=== PATIENT | male | born 1955 | race Caucasian/White ===

== ENCOUNTER → 2019-08-06 08:05 | Outpatient (CLI) | payer OTHER, SELFPAY ==
[2019-08-06 08:45] LABS: Add Manual Diff / Slide Review NO; Basophils Absolute Auto 0 /uL (0-100); Basophils Percent Auto 0.5 % (0-2); Eosinophils Absolute Auto 200 /uL (0-450); Eosinophils Percent Auto 5.8 % (2-4); Hematocrit 46.3 % (41-53); Hemoglobin 15.7 g/dL (13.5-17.5); Lymphocytes Absolute Auto 1400 /uL (1100-4500); Lymphocytes Percent Auto 40.1 % (25-40); Mean Corpuscular HGB Conc 33.9 % (30-36); Mean Corpuscular Hemoglobin 30.9 PG (26-34); Mean Corpuscular Volume 91.2 fL (80-100); Monocytes Absolute Auto 100 /uL (0-900); Monocytes Percent Auto 2.7 % (3-14); Neutrophils Absolute Auto 1700 /uL (1500-7000); Neutrophils Percent Auto 50.9 % (50-75); Platelet Count 142 X10^3/uL (150-400); Red Blood Cell Count 5.07 X10^6/uL (4.5-5.9); Red Cell Distribution Width 14.6 % (11.6-14.8); White Blood Cell Count 3.4 X10^3/uL (4.5-11.0)
[2019-08-06 09:02] LABS: Alanine Aminotransferase 22 IU/L (<50); Albumin 4.6 g/dL (3.5-5.0); Albumin Globulin Ratio 1.8 (1.0-2.8); Alkaline Phosphatase 59 U/L (38-126); Aspartate Aminotransferase 29 IU/L (17-59); BUN Creatinine Ratio 18.3 (6-22); Bilirubin Total 1.1 mg/dL (0.2-1.3); Blood Urea Nitrogen 15 mg/dL (9-20); Calcium 9.5 mg/dL (8.4-10.2); Carbon Dioxide 27 mmol/L (22-32); Chloride 102 mmol/L (98-107); Creatine Kinase 80 U/L (55-170); Estimated Glomerular Filt Rate > 60.0 mL/min (>60); Globulin 2.6 g/dL (1.7-4.1); Glucose 111 mg/dL (80-110); HEMOLYSIS < 15 (0-50); Sodium 139 mmol/L (137-145); Total Protein 7.2 g/dL (6.3-8.2); Uric Acid 4.9 mg/dL (3.5-8.5)
[2019-08-06 09:05] LABS: C-Reactive Protein Quant < 0.5 mg/dL (<1.0)
[2019-08-06 09:48] LABS: Erythrocyte Sedimentation Rate 1 MM/HR (0-15)
[2019-08-07 23:06] LABS: Aldolase 4.4 U/L (3.3-10.3)
== END ==
PROVIDERS: PCP Family Medicine; Referring Provider Internal Medicine Rheumatology; Visit Provider Internal Medicine Rheumatology
DX: M10.9 Gout, unspecified (principal)
CPT/HCPCS: 36415; 80053; 82085; 82550; 84550; 85025; 85651; 86140

== ENCOUNTER → 2019-12-11 11:52 | Outpatient (CLI) | payer OTHER, SELFPAY ==
--- NOTE | 2019-12-11 11:55 | DI.RAD.S_ITS ---
PROCEDURE: XR LUMBAR SPINE MIN 4V INDICATIONS: LBP TECHNIQUE: 4 total views of the lumbar spine were acquired, including bilateral oblique views. COMPARISON: [facility], MR, MR LUMBAR SPINE WITHOUT CONTRAST, 05/26/2017, 10:15. [facility], RF, LUMBAR TRANSFORAMINAL HERRERA, 03/16/2018, 8:21. [facility], RF, LUMBAR TRANSFORAMINAL HERRERA, 09/13/2018, 9:47. FINDINGS: Bones: Mild levoconvex scoliotic curvature is noted. 5 nonrib-bearing, lumbar type vertebral bodies are seen. No displaced fractures are seen. No suspicious lytic or blastic lesions are seen. The disc heights are well preserved. Lower lumbar spine facet arthropathy is seen. Soft tissues: Overlying bowel gas pattern is normal. No suspicious soft tissue calcifications. Atherosclerotic calcification is noted. Pelvic phleboliths are incidentally noted. Oblique images: No pars defects. IMPRESSION: No significant abnormality is seen for age. No pars defects are detected. Dictated by: Deon Jessica M.D. on 12/11/2019 at 11:40 Approved by: Deon Jessica M.D. on 12/11/2019 at 11:42
== END ==
PROVIDERS: PCP Family Medicine; Referring Provider Family Medicine; Visit Provider Physical Medicine & Rehabilitation
DX: M47.26 Other spondylosis with radiculopathy, lumbar region (principal); M54.5 Low back pain; M41.9 Scoliosis, unspecified
CPT/HCPCS: 72110

== ENCOUNTER → 2020-02-12 13:02 | Outpatient (CLI) | payer OTHER, SELFPAY ==
[2020-02-12 15:20] LABS: COVID19 -Nasal RAPID Negative (Negative)
== END ==
PROVIDERS: PCP Family Medicine; Visit Provider Physical Medicine & Rehabilitation
DX: Z11.59 Encounter for screening for other viral diseases (principal)
CPT/HCPCS: 87635; C9803

== ENCOUNTER 2020-02-14 13:42 | Outpatient (CLI) | payer OTHER, SELFPAY ==
[2020-02-14] VITALS (8 sets, daily range): BP systolic 141–182; BP diastolic 83–101; PULSE 54–61; RESP 7–22; TEMP 36.1–36.6; O2SAT 2–98
--- NOTE | 2020-02-14 13:45 | DI.RAD.S_ITS ---
PROCEDURE: PAIN L/S TRANSFORAMINAL INJECT INDICATIONS: SPONDYLOSIS COMPARISON: [facility], CR, XR LUMBAR SPINE MIN 4V, 12/11/2019, 11:44. FINDINGS: Fluoroscopic spot filming was performed to verify placement of a spinal needle at the L4-L5 level, as labeled on the films. Appropriate location of the needle tip was confirmed by injection of iodinated contrast. IMPRESSION: Intraprocedural examination within normal limits. Dictated by: Deon Jessica M.D. on 02/14/2020 at 16:22 Approved by: Deon Jessica M.D. on 02/14/2020 at 16:22
[2020-02-14] MEDS: fentaNYL 100 MCG/2 ML INJ 50 MCG IV (14:25)
[2020-02-14] MEDS: BETAMETHASONE 30 MG/5 ML MDV 6 MG INJ (14:28)
[2020-02-14] MEDS: IOPAMIDOL 15 ML VIAL 3 ML INJ (14:28)
[2020-02-14] MEDS: BUPIVACAINE 0.25% (PF) VIAL 2 ML INJ (14:28)
[2020-02-14] MEDS: MIDAZOLAM 5 MG/5 ML VIAL IV (14:28)
[2020-02-14] MEDS: DEXAMETHASONE 10 MG/ML VIAL 20 MG INJ (14:29)
--- NOTE | 2020-02-14 14:35 | P.PCN_ITS ---
Date/Time/Diagnoses Date of procedure: 02/14/20 Time of procedure: 14:35 Pre-procedure diagnosis: 1. FORAMINAL STENOSIS WITH LE SYMPTOMS Post-procedure diagnosis: same Procedure Notes Procedure: 1. FLUOROSCOPICALLY GUIDED CONTRAST CONTROLLED TRANSFORAMINAL EPIDURAL STEROID INJECTION - RIGHT L4/5 TFESI Indications: Steven Gardner is referred by Dr. Yen for treatment of Foraminal Stenosis with Right LE Symptoms Physician: Steven Miller Total Fluoroscopy time (seconds): 6 Total sedation minutes: 8 Complications: none Procedure in detail & Post-procedure care: FINDINGS Foraminal Nerve Root Compression secondary to disc disease and facet hypertrophy DESCRIPTION OF PROCEDURE Following review of allergy and review of potential side effects and complications, including, but not necessarily limited to, infection, allergic reaction, local tissue breakdown, stroke, temporary or permanent nerve injury, paralysis, and possible , the patient indicated that the patient understood and agreed to proceed. An informed consent document was signed by the patient, witnessed by a nurse, and placed in the patient's chart. Additionally, other treatment options including medications, modalities, and physical therapy were reviewed with the patient. After review of previous anaesthesic history and IV conscious sedation the patient was deemed safe to proceed with today?s procedure with IV conscious sedation as ASA class II designation. Safety time-out was performed to confirm patient ID, procedure to be performed and site of procedure. IV sedation was accomplished with a combination of 3mg of Versed and 50mcg of Fentanyl was administered by the RN after DO order, titrated to patient comfort during the course of the procedure while the patient remained responsive to all verbal commands In the prone position following sterile prep and drape of the lumbar region, the Right L4/5 posterior neuroforamen was identified fluoroscopically. The skin was anesthetized via a 25-gauge 1.5-inch needle with 1% lidocaine solution. At this point, a 25-gauge 3.5-inch spinal needle was atraumatically introduced and advanced under fluoroscopic guidance through the posterior Right L4/5 neuroforamen to approximately the anterior aspect of the canal. Depth was confirmed on lateral view. Following negative aspiration, injection of approximately 1.5cc of Isovue 200 under live fluoroscopy in the AP view confirmed excellent flow along the nerve root, into the epidural space without vascular or intrathecal uptake observed Radiological data, including multiple fluoroscopic views of the lumbosacral spine, reveal a spinal needle at the right L4/5 posterior neuroforamen. Subsequent views show flow of contrast material flowing superiorly and inferiorly along the nerve root confirming epidural flow. Subsequently, a test dose of 1.5 cc of 1% lidocaine solution was administered and patient was observed for two minutes for signs or symptoms of complications, including abdominal pain, shortness of breath, bilateral upper or lower extremity weakness, nausea and vomiting, prior to steroid injection. At this point, a total of 3cc or 20mg of dexamethasone and 6mg of betamethasone was injected without incident. The procedure tolerated the procedure well without signs or symptoms of complications prior to transfer to the recovery area continued monitoring without incident. The patient was then transferred to the recovery area where they were observed for an appropriate time after the injection. The patient reported a VAS score of 7 prior to the procedure and a post- procedure VAS of 0. POST OP INSTRUCTIONS The patient was provided a Pain Log to continue to record their response to the target-specific procedure prior to follow-up visit with their referring physician. Additionally, specific post-injection care instructions and a contact number to our office were provided if concerns arise regarding possible complications associated with the procedure are suspected.
== END 2020-02-14 15:01 | disposition home or self-care (01) ==
LOC: RAD 13:45
PROVIDERS: PCP Family Medicine; Referring Provider Physical Medicine & Rehabilitation; Visit Provider Physical Medicine & Rehabilitation
DX: M51.26 Other intervertebral disc displacement, lumbar region (principal)
CPT/HCPCS: 64483; J0702; J1100; J2250; J3010

== ENCOUNTER → 2020-04-30 09:49 | Outpatient (CLI) | payer OTHER, SELFPAY ==
--- NOTE | 2020-04-30 09:50 | DI.MRI.S_ITS ---
PROCEDURE: MR LUMBAR SPINE WO CON INDICATIONS: Bilateral L4-5 L5-S1 facets TECHNIQUE: Noncontrast sagittal T1 spin echo and T2 fast echo, sagittal STIR, axial T1 and T2 fast spin echo through the lumbar spine. In cases with scoliosis, additional coronal T2 fast spin echo may be performed. COMPARISON: [facility], MR, MR LUMBAR SPINE WITHOUT CONTRAST, 05/26/2017, 10:15. [facility], CR, XR LUMBAR SPINE MIN 4V, 12/11/2019, 11:44. FINDINGS: Image quality: Excellent. Alignment and Curvature: 5 lumbar type vertebral bodies are present by plain film. Loss of normal lumbar lordosis. Mild grade 1 retrolisthesis of L4 on L5. Bone Marrow: Marrow is of normal overall signal. No acute vertebral body compression fractures. Minimal reactive signal within the endplates adjacent to the L3-L4 and L4-L5 intervertebral discs. Spinal Cord: Conus medullaris terminates at the L1-L2 disc space level. Visualized cord demonstrates normal signal and size. Paraspinous Soft Tissues: No paravertebral masses. T12-L1: Normal appearance. L1-L2: Normal appearance. L2-L3: Mild disc desiccation. Mild facet and ligamentum flavum hypertrophy. Mild epidural lipomatosis. Mild canal stenosis. Mild bilateral foraminal stenosis. No change. L3-L4: Mild disc desiccation and diffuse disc bulge. Mild facet and ligamentum flavum hypertrophy. Mild epidural lipomatosis. Mild canal stenosis. Mild bilateral foraminal stenosis. No change. L4-L5: Moderate disc height loss and desiccation. Mild diffuse disc bulge with small superimposed central protrusion and annular tear. Mild facet and ligamentum flavum hypertrophy. Mild epidural lipomatosis. Mild canal stenosis. Mild bilateral foraminal stenosis. No change. L5-S1: Mild disc height loss and desiccation. Mild diffuse disc bulge. Mild facet hypertrophy bilaterally. Mild canal stenosis. Moderate subarticular foraminal stenosis bilaterally. No change. IMPRESSION: 1. Multilevel degenerative disc and facet disease, as well as ligamentum flavum hypertrophy and epidural lipomatosis. 2. Mild multilevel canal stenosis. 3. Multilevel foraminal stenosis, worst at L5-S1, where there are moderate foraminal stenosis bilaterally. Dictated by: Carlene Sepulveda M.D. on 04/30/2020 at 10:34 Approved by: Carlene Sepulveda M.D. on 04/30/2020 at 10:38
== END ==
PROVIDERS: PCP Family Medicine; Referring Provider Physical Medicine & Rehabilitation; Visit Provider Physical Medicine & Rehabilitation
DX: M47.816 Spondylosis without myelopathy or radiculopathy, lumbar region (principal); M47.817 Spondylosis without myelopathy or radiculopathy, lumbosacral region; M51.26 Other intervertebral disc displacement, lumbar region; M48.061 Spinal stenosis, lumbar region without neurogenic claudication; M48.07 Spinal stenosis, lumbosacral region; M51.36 Other intervertebral disc degeneration, lumbar region; M51.37 Other intervertebral disc degeneration, lumbosacral region
CPT/HCPCS: 72148

== ENCOUNTER → 2020-05-13 12:32 | Outpatient (CLI) | payer OTHER, SELFPAY ==
[2020-05-13 14:51] LABS: COVID19 -Nasal RAPID Negative (Negative)
== END ==
PROVIDERS: PCP Family Medicine; Visit Provider Physical Medicine & Rehabilitation
DX: Z20.822 Contact with and (suspected) exposure to COVID-19 (principal)
CPT/HCPCS: 87635; C9803

== ENCOUNTER 2020-05-15 08:07 | Outpatient (CLI) | payer OTHER, SELFPAY ==
[2020-05-15] VITALS (10 sets, daily range): BP systolic 104–160; BP diastolic 56–96; PULSE 67–87; RESP 10–24; TEMP 36.4; O2SAT 95–98
--- NOTE | 2020-05-15 08:09 | DI.RAD.S_ITS ---
PROCEDURE: PAIN L/S FACET INJ/BLK 1ST BRETT COMPARISON: [facility], , PAIN L/S TRANSFORAMINAL INJECT, 02/14/2020, 14:25. INDICATIONS: SPONDYLOSIS FINDINGS: Fluoroscopic spot filming was performed to verify placement of spinal needles on both sides at the L4-L5 level and the L5-S1 level, as labeled on the films. Appropriate location of the needle tips was confirmed by injection of iodinated contrast. IMPRESSION: Intraprocedural examination within normal limits. Dictated by: Deon Jessica M.D. on 05/15/2020 at 9:41 Approved by: Deon Jessica M.D. on 05/15/2020 at 9:41
[2020-05-15] MEDS: fentaNYL 100 MCG/2 ML INJ 50 MCG IV (09:05)
[2020-05-15] MEDS: MIDAZOLAM 5 MG/5 ML VIAL IV (09:08)
[2020-05-15] MEDS: IOPAMIDOL 15 ML VIAL 3 ML INJ (09:09)
[2020-05-15] MEDS: BUPIVACAINE 0.5% (PF) VIAL 2 ML INJ (09:10)
[2020-05-15] MEDS: BETAMETHASONE 30 MG/5 ML MDV 12 MG INJ (09:10)
--- NOTE | 2020-05-15 09:18 | P.PCN_ITS ---
Date/Time/Diagnoses Date of procedure: 05/15/20 Time of procedure: 09:18 Pre-procedure diagnosis: 1. FACET ARTHROPATHY 2. AXIAL LBP 3. MULTILEVEL DDD Post-procedure diagnosis: same Procedure Notes Procedure: 1. FLUOROSCOPICALLY GUIDED CONTRAST CONTROLLED FACET JOINT INJECTIONS BILATERAL L4/5, L5/S1 Indications: Jj is referred by Dr. Yen for treatment of Axial LBP Physician: Steven Miller Total Fluoroscopy time (seconds): 8 Total sedation minutes: 10 Complications: none Procedure in detail & Post-procedure care: FINDINGS Multilevel Facet Arthropathy with Clinically significant axial LBP DESCRIPTION OF PROCEDURE Fluoroscopically guided, contrast-controlled bilateral L4/5, L5/S1 facet joint injections. Following review of allergy and review of potential side effects and complications, including, but not necessarily limited to, infection, allergic reaction, local tissue breakdown, stroke, temporary or permanent nerve injury, paralysis, and possible , the patient indicated that the patient understood and agreed to proceed. An informed consent document was signed by the patient, witnessed by a nurse, and placed in the patient's chart. Additionally, other treatment options including medications, modalities, and physical therapy were reviewed with the patient. After review of previous anaesthesic history and IV conscious sedation the patient was deemed safe to proceed with today?s procedure with IV conscious sedation as ASA class II designation. Safety time-out was performed to confirm patient ID, procedure to be performed and site of procedure. IV sedation was accomplished with a combination of 3mg of Versed and 50mcg of Fentanyl was administered by the RN after DO order, titrated to patient comfort during the course of the procedure while the patient remained responsive to all verbal commands In the prone position, following sterile prep and drape of the lumbar region, the posterior aspect of the L4/5, L5/S1 facet joints were identified fluoroscopically. The skin was anesthetized via a 25-gauge 1.5inch needle with 1% lidocaine solution into the corresponding facet joints. At this point, a 22- gauge 3.5-inch spinal needle was atraumatically introduced and advanced under fluoroscopic guidance into the corresponding facet joints. Following negative aspiration, injections of approximately 0.2cc of Isovue 200 confirmed intera rticular placement without vascular uptake. The identical procedure was then performed at the L4/5, L5/S1 facet joints on the left. Radiological data, including multiple fluoroscopic views of the lumbosacral spine, reveal a spinal needle at the L4/5, L5/S1 facet joints bilaterally. Subsequent views show flow of contrast material both superiorly and inferiorly within the joint space without vascular or intrathecal uptake. At this point, a total of 0.5cc including a mixture of 0.25cc Marcaine and 0.25cc betamethasone was injected without complication into each of the corresponding facet joints. The patient tolerated the procedure well without signs or symptoms of complications prior to transfer to the recovery area continued monitoring without incident. The patient was then transferred to the recovery area where they were observed for an appropriate period of time after the injection. The patient reported a VAS score of 7 prior to the procedure and a post- procedure VAS of 0. POST OP INSTRUCTIONS The patient was provided a Pain Log to continue to record their response to the target-specific procedure prior to follow-up visit with their referring physician. Additionally, specific post-injection care instructions and a contact number to our office were provided if concerns arise regarding possible complications associated with the procedure are suspected.
--- NOTE | 2020-05-15 12:34 | PC.NURSE ---
Patient was noted to be in Afib, reports he has no history of it. Denies any chest pain, sob or and heart palpations. Denies having any recent changes of the past few weeks reports he has felt normal. MD aware and patient is in post procedure chair, 12 lead EKG order and done by RT. Shows Atrial fibrillation, T way Abnormality, consider lateral ischemia. Dr Miller reviewed EKG findings and spoke with patient. Per Dr Miller ok to d/c home and will need to f/u with his PCP, Dr Miller states he will call Dr Yen. Patient was steady on feet denies any dizziness or lightheaded. Advised if he has any SOB, chest pain or palpations to please see emergency care. Patient was ok with plan. Dr Miller also advised him to start a ASA 81mg. This RN took patient out to car via w/c.
== END 2020-05-15 10:16 | disposition home or self-care (01) ==
LOC: RAD 08:08
PROVIDERS: PCP Family Medicine; Referring Provider Physical Medicine & Rehabilitation; Visit Provider Physical Medicine & Rehabilitation
DX: M47.816 Spondylosis without myelopathy or radiculopathy, lumbar region (principal); M47.817 Spondylosis without myelopathy or radiculopathy, lumbosacral region; M51.36 Other intervertebral disc degeneration, lumbar region; M51.37 Other intervertebral disc degeneration, lumbosacral region; M54.5 Low back pain
CPT/HCPCS: 64493; 64494; 93005; 93010; 99152; J0702; J2250; J3010

== ENCOUNTER → 2021-09-11 10:41 | Outpatient (CLI) | payer OTHER, SELFPAY ==
[2021-09-11 11:13] LABS: Appearance Urine UA CLEAR; Bilirubin Urine UA NEGATIVE (NEGATIVE); Color Urine UA YELLOW; Glucose Urine UA NEGATIVE (Negative); Ketones Urine UA NEGATIVE (NEGATIVE); Leukocyte Esterase Urine UA NEGATIVE (NEGATIVE); Nitrite Urine UA NEGATIVE (Negative); Occult Blood Urine UA 1+ (Negative); Protein Urine UA NEGATIVE (Negative); Specific Gravity Urine UA <=1.005 (1.000-1.035); Urobilinogen Urine UA 0.2 E.U./dL (0.2)
[2021-09-11 11:24] LABS: Bacteria Urine Occasional (0-1); Culture Indicated Urine Cult Not Indicated; RBC Urine 0-1/HPF (0-5/HPF); WBC Urine 0-1/HPF (0-5/HPF)
[2021-09-12 01:11] LABS: BUN Creatinine Ratio 17.4 (6-22); Blood Urea Nitrogen 15 mg/dL (9-20); Calcium 9.1 mg/dL (8.4-10.2); Carbon Dioxide 30 mmol/L (22-32); Chloride 105 mmol/L (98-107); Estimated Glomerular Filt Rate > 60 mL/min (>60); Glucose 96 mg/dL (80-110); HEMOLYSIS < 15 (0-50); Potassium 4.3 mmol/L (3.4-5.1); Sodium 141 mmol/L (137-145)
[2021-09-12 03:35] LABS: Sodium Urine Random 21 mmol/L (30-90)
== END ==
PROVIDERS: PCP Family Medicine; Referring Provider Student in an Organized Health Care Education/Training Program; Visit Provider Student in an Organized Health Care Education/Training Program
DX: N05.9 Unspecified nephritic syndrome with unspecified morphologic changes (principal); N30.00 Acute cystitis without hematuria; E87.1 Hypo-osmolality and hyponatremia
CPT/HCPCS: 36415; 80048; 81001; 84300

== ENCOUNTER → 2021-11-23 08:56 | Outpatient (CLI) | payer OTHER, SELFPAY ==
[2021-11-23 10:28] LABS: Blood Urea Nitrogen 13 mg/dL (9-20); Calcium 9.3 mg/dL (8.4-10.2); Carbon Dioxide 30 mmol/L (22-32); Chloride 103 mmol/L (98-107); Estimated Glomerular Filt Rate > 60 mL/min (>60); Glucose 103 mg/dL (80-110); HEMOLYSIS < 15 (0-50); Potassium 4.9 mmol/L (3.4-5.1); Sodium 138 mmol/L (137-145)
== END ==
PROVIDERS: PCP Family Medicine; Referring Provider Student in an Organized Health Care Education/Training Program; Visit Provider Student in an Organized Health Care Education/Training Program
DX: N05.9 Unspecified nephritic syndrome with unspecified morphologic changes (principal)
CPT/HCPCS: 36415; 80048

== ENCOUNTER → 2022-06-28 08:51 | Outpatient (CLI) | payer OTHER, SELFPAY ==
[2022-06-28 10:41] LABS: BUN Creatinine Ratio 11.1 (6-22); Blood Urea Nitrogen 10 mg/dL (9-20); Calcium 8.8 mg/dL (8.4-10.2); Carbon Dioxide 30 mmol/L (22-32); Chloride 101 mmol/L (98-107); Estimated Glomerular Filt Rate > 60 mL/min (>60); Glucose 127 mg/dL (80-110); HEMOLYSIS < 15 (0-50); Sodium 137 mmol/L (137-145)
[2022-06-28 10:44] LABS: Protein (Total) Urine Random 13 mg/dL (0-12)
[2022-06-28 10:49] LABS: Hematocrit 40.4 % (41-53); Hemoglobin 13.7 g/dL (13.5-17.5)
== END ==
PROVIDERS: PCP Family Medicine; Referring Provider Student in an Organized Health Care Education/Training Program; Visit Provider Student in an Organized Health Care Education/Training Program
DX: N05.9 Unspecified nephritic syndrome with unspecified morphologic changes (principal); D64.9 Anemia, unspecified; R80.9 Proteinuria, unspecified
CPT/HCPCS: 36415; 80048; 82570; 84156; 85014; 85018

== ENCOUNTER → 2023-08-01 08:15 | Outpatient (CLI) | payer OTHER, SELFPAY ==
[2023-08-01 09:23] LABS: Hematocrit 41.4 % (41-53); Hemoglobin 14.4 g/dL (13.5-17.5)
[2023-08-01 09:43] LABS: BUN Creatinine Ratio 16.3 (6-22); Blood Urea Nitrogen 14 mg/dL (9-20); Calcium 9.4 mg/dL (8.4-10.2); Carbon Dioxide 29 mmol/L (22-32); Chloride 106 mmol/L (98-107); Estimated Glomerular Filt Rate > 60 mL/min (>60); Glucose 90 mg/dL (80-110); HEMOLYSIS < 15 (0-50); Potassium 4.1 mmol/L (3.4-5.1); Sodium 140 mmol/L (137-145)
[2023-08-01 10:50] LABS: Protein (Total) Urine Random < 5 mg/dL (0-12)
[2023-08-01 11:00] LABS: Creatinine Urine Random 391.2 mg/dL; Protein Creatinine Ratio Urine 0.01 GRAM/24H
== END ==
PROVIDERS: PCP Family Medicine; Referring Provider Student in an Organized Health Care Education/Training Program; Visit Provider Student in an Organized Health Care Education/Training Program
DX: N05.9 Unspecified nephritic syndrome with unspecified morphologic changes (principal); D70.9 Neutropenia, unspecified; D63.1 Anemia in chronic kidney disease; R80.9 Proteinuria, unspecified
CPT/HCPCS: 36415; 80048; 82570; 84156; 85014; 85018

== ENCOUNTER → 2023-08-08 09:07 | Outpatient (CLI) | payer OTHER, SELFPAY ==
--- NOTE | 2023-08-08 09:09 | DI.RAD.S_ITS ---
PROCEDURE: XR LUMBAR SPINE MIN 4V INDICATIONS: low back pain TECHNIQUE: 5 views of the lumbar spine were acquired, including bilateral oblique views. COMPARISON: [facility], , XR LUMBAR SPINE MIN 4V, 12/11/2019, 11:44. FINDINGS: Bones: 5 nonrib-bearing vertebrae are present. There is normal bony alignment. No acute vertebral body compression fractures. No suspicious bony lesions. Mild multilevel lumbar spondylitic changes and facet arthropathy. Findings are most prominent at L4-5 and L5-S1. Soft tissues: Overlying bowel gas pattern is normal. No suspicious soft tissue calcifications. Oblique images: No pars defects. IMPRESSION: Lumbar spine without acute osseous abnormalities or traumatic malalignment. Mild multilevel lumbar spondylosis most prominent at L4-5 and L5-S1. Dictated by: Kiran Richter M.D. on 08/08/2023 at 10:09 Approved by: Kiran Richter M.D. on 08/08/2023 at 10:11
== END ==
LOC: RAD 09:09
PROVIDERS: PCP Family Medicine; Referring Provider Physical Medicine & Rehabilitation; Visit Provider Physical Medicine & Rehabilitation
DX: M47.816 Spondylosis without myelopathy or radiculopathy, lumbar region (principal); M47.817 Spondylosis without myelopathy or radiculopathy, lumbosacral region; M51.26 Other intervertebral disc displacement, lumbar region
CPT/HCPCS: 72110

== ENCOUNTER 2023-09-01 08:44 | Outpatient (CLI) | payer OTHER, SELFPAY ==
[2023-09-01] VITALS (8 sets, daily range): BP systolic 124–179; BP diastolic 70–84; PULSE 46–56; RESP 16–20; TEMP 36.2; O2SAT 96–98
--- NOTE | 2023-09-01 09:15 | DI.RAD.S_ITS ---
PROCEDURE: PAIN L/S TRANSFORAMINAL INJECT INDICATIONS: Right L4/5 and L5/S1 TFESI COMPARISON: [facility], , PAIN L/S TRANSFORAMINAL INJECT, 02/14/2020, 14:25. FINDINGS: Fluoroscopic spot filming was performed to verify placement of spinal needles at the right L4-5 and L5-S1 level(s), as labeled on the films. Appropriate location(s) of the needle tip(s) was confirmed by injection of iodinated contrast. IMPRESSION: Fluoroscopic support for transforaminal epidural steroid injection at L4-5 and L5-S1. Please see separate procedure note for further details. Dictated by: Kiran Richter M.D. on 09/01/2023 at 14:51 Approved by: Kiran Richter M.D. on 09/01/2023 at 14:51
[2023-09-01] MEDS: MIDAZOLAM 2 MG/2 ML VIAL IV (09:47)
[2023-09-01] MEDS: iopamidoL 15 ML VIAL 3 ML INJ (09:49)
[2023-09-01] MEDS: BETAMETHASONE 30 MG/5 ML MDV 12 MG INJ (09:50)
[2023-09-01] MEDS: BUPIVACAINE 0.25% (PF) VIAL 2 ML INJ (09:50)
[2023-09-01] MEDS: DEXAMETHASONE 10 MG/ML VIAL 20 MG INJ (09:50)
--- NOTE | 2023-09-01 10:10 | P.PCN_ITS ---
Date/Time/Diagnoses Date of procedure: 09/01/23 Time of procedure: 10:10 Pre-procedure diagnosis: 1. FORAMINAL STENOSIS WITH LE SYMPTOMS Post-procedure diagnosis: same Procedure Notes Procedure: 1. FLUOROSCOPICALLY GUIDED CONTRAST CONTROLLED TRANSFORAMINAL EPIDURAL STEROID INJECTION - RIGHT L4/5 TFESI Indications: Steven is referred by Dr. Yen for treatment of Foraminal Stenosis with Right LE Symptoms Physician: Steven Miller Total Fluoroscopy time (seconds): 23 Total sedation minutes: 16 Complications: none Procedure in detail & Post-procedure care: FINDINGS Foraminal Nerve Root Compression secondary to disc disease and facet hypertrophy DESCRIPTION OF PROCEDURE Following review of allergy and review of potential side effects and complications, including, but not necessarily limited to, infection, allergic reaction, local tissue breakdown, stroke, temporary or permanent nerve injury, paralysis, and possible , the patient indicated that the patient understood and agreed to proceed. An informed consent document was signed by the patient, witnessed by a nurse, and placed in the patient's chart. Additionally, other treatment options including medications, modalities, and physical therapy were reviewed with the patient. After review of previous anaesthesic history and IV conscious sedation the patient was deemed safe to proceed with today?s procedure with IV conscious sedation as ASA class II designation. Safety time-out was performed to confirm patient ID, procedure to be performed and site of procedure. IV sedation was accomplished with a combination of 2mg of Versed was administered by the RN after DO order, titrated to patient comfort during the course of the procedure while the patient remained responsive to all verbal commands In the prone position following sterile prep and drape of the lumbar region, the right L4/5 posterior neuroforamen was identified fluoroscopically. The skin was anesthetized via a 25-gauge 1.5-inch needle with 1% lidocaine solution. At this point, a 25-gauge 3.5-inch spinal needle was atraumatically introduced and advanced under fluoroscopic guidance through the posterior right L4/5 neuroforamen to approximately the anterior aspect of the canal. Depth was confirmed on lateral view. Following negative aspiration, injection of approximately 1.5cc of Isovue 200 under live fluoroscopy in the AP view confirmed excellent flow along the nerve root, into the epidural space without vascular or intrathecal uptake observed Radiological data, including multiple fluoroscopic views of the lumbosacral sp ine, reveal a spinal needle at the right L4/5 posterior neuroforamen. Subsequent views show flow of contrast material flowing superiorly and inferiorly along the nerve root confirming epidural flow. Subsequently, a test dose of 1.5 cc of 1% lidocaine solution was administered and patient was observed for two minutes for signs or symptoms of complications, including abdominal pain, shortness of breath, bilateral upper or lower extremity weakness, nausea and vomiting, prior to steroid injection. At this point, a total of 2cc or 10mg of dexamethasone and 6mg of betamethasone was injected without incident. The procedure tolerated the procedure well without signs or symptoms of complications prior to transfer to the recovery area continued monitoring without incident. The patient was then transferred to the recovery area where they were observed for an appropriate time after the injection. The patient reported a VAS score of 7 prior to the procedure and a post- procedure VAS of 0. POST OP INSTRUCTIONS The patient was provided a Pain Log to continue to record their response to the target-specific procedure prior to follow-up visit with their referring physician. Additionally, specific post-injection care instructions and a contact number to our office were provided if concerns arise regarding possible complications associated with the procedure are suspected.
--- NOTE | 2023-09-01 10:11 | P.PCN_ITS ---
Date/Time/Diagnoses Date of procedure: 09/01/23 Time of procedure: 10:11 Pre-procedure diagnosis: FORAMINAL STENOSIS WITH LE SYMPTOMS Post-procedure diagnosis: same Procedure Notes Procedure: 1. FLUOROSCOPICALLY GUIDED CONTRAST CONTROLLED TRANSFORAMINAL EPIDURAL STEROID INJECTION - RIGHT L5/S1 TFESI Indications: Steven is referred by Dr. Yen for treatment of Foraminal Stenosis with Right LE Symptoms Physician: Steven Miller Total Fluoroscopy time (seconds): 23 Total sedation minutes: 16 Complications: none Procedure in detail & Post-procedure care: FINDINGS Foraminal Nerve Root Compression secondary to disc disease and facet hypertrophy DESCRIPTION OF PROCEDURE Following review of allergy and review of potential side effects and complications, including, but not necessarily limited to, infection, allergic reaction, local tissue breakdown, stroke, temporary or permanent nerve injury, paralysis, and possible , the patient indicated that the patient understood and agreed to proceed. An informed consent document was signed by the patient, witnessed by a nurse, and placed in the patient's chart. Additionally, other treatment options including medications, modalities, and physical therapy were reviewed with the patient. After review of previous anaesthesic history and IV conscious sedation the patient was deemed safe to proceed with today?s procedure with IV conscious sedation as ASA class II designation. Safety time-out was performed to confirm patient ID, procedure to be performed and site of procedure. IV sedation was accomplished with a combination of 2mg of Versed was administered by the RN after DO order, titrated to patient comfort during the course of the procedure while the patient remained responsive to all verbal commands In the prone position following sterile prep and drape of the lumbar region, the right L5/S1 posterior neuroforamen was identified fluoroscopically. The skin was anesthetized via a 25-gauge 1.5-inch needle with 1% lidocaine solution. At this point, a 25-gauge 3.5-inch spinal needle was atraumatically introduced and advanced under fluoroscopic guidance through the posterior right L5/S1 neuroforamen to approximately the anterior aspect of the canal. Depth was confirmed on lateral view. Following negative aspiration, injection of approximately 1.5cc of Isovue 200 under live fluoroscopy in the AP view confirmed excellent flow along the nerve root, into the epidural space without vascular or intrathecal uptake observed Radiological data, including multiple fluoroscopic views of the lumbosacral spine, reveal a spinal needle at the right L5/S1 posterior neuroforamen. Subsequent views show flow of contrast material flowing superiorly and inferiorly along the nerve root confirming epidural flow. Subsequently, a test dose of 1.5 cc of 1% lidocaine solution was administered and patient was observed for two minutes for signs or symptoms of complications, including abdominal pain, shortness of breath, bilateral upper or lower extr emity weakness, nausea and vomiting, prior to steroid injection. At this point, a total of 2cc or 10mg of dexamethasone and 6mg of betamethasone was injected without incident. The procedure tolerated the procedure well without signs or symptoms of complications prior to transfer to the recovery area continued monitoring without incident. The patient was then transferred to the recovery area where they were observed for an appropriate time after the injection. The patient reported a VAS score of 7 prior to the procedure and a post- procedure VAS of 0. POST OP INSTRUCTIONS The patient was provided a Pain Log to continue to record their response to the target-specific procedure prior to follow-up visit with their referring physician. Additionally, specific post-injection care instructions and a contact number to our office were provided if concerns arise regarding possible complications associated with the procedure are suspected.
== END 2023-09-01 10:23 | disposition home or self-care (01) ==
LOC: RAD 08:44
PROVIDERS: PCP Family Medicine; Referring Provider Physical Medicine & Rehabilitation; Visit Provider Physical Medicine & Rehabilitation
DX: M48.061 Spinal stenosis, lumbar region without neurogenic claudication (principal); M48.07 Spinal stenosis, lumbosacral region; M51.16 Intervertebral disc disorders with radiculopathy, lumbar region; M51.17 Intervertebral disc disorders with radiculopathy, lumbosacral region; M47.26 Other spondylosis with radiculopathy, lumbar region; M47.27 Other spondylosis with radiculopathy, lumbosacral region
CPT/HCPCS: 64483; 64484; 99152; J0702; J1100; J2250; J3490

== ENCOUNTER → 2024-08-13 07:33 | Outpatient (CLI) | payer OTHER, SELFPAY ==
[2024-08-13 08:19] LABS: Hemoglobin 12.3 g/dL (13.5-17.5)
[2024-08-13 08:38] LABS: BUN Creatinine Ratio 19.7 (6-22); Blood Urea Nitrogen 15 mg/dL (9-20); Calcium 9.5 mg/dL (8.4-10.2); Carbon Dioxide 30 mmol/L (22-32); Chloride 100 mmol/L (98-107); Cholesterol 112 mg/dL (140-199); Creatinine Urine Random 123.91 mg/dL; Estimated Glomerular Filt Rate > 60 mL/min (>60); Glucose 92 mg/dL (70-99); HDL Cholesterol 34 mg/dL (40-60); HEMOLYSIS < 15 (0-50); LDL Cholesterol Calculated 49 mg/dL (<100); Potassium 4.1 mmol/L (3.4-5.1); Protein (Total) Urine Random 12 mg/dL (0-12); Protein Creatinine Ratio Urine 0.09 GRAM/24H; Sodium 137 mmol/L (137-145); Triglycerides 145 mg/dL (35-150)
== END ==
LOC: LAB 07:34
PROVIDERS: PCP Family Medicine; Referring Provider Student in an Organized Health Care Education/Training Program; Visit Provider Student in an Organized Health Care Education/Training Program
DX: E78.00 Pure hypercholesterolemia, unspecified (principal); N05.9 Unspecified nephritic syndrome with unspecified morphologic changes; D70.9 Neutropenia, unspecified; R80.9 Proteinuria, unspecified; D63.1 Anemia in chronic kidney disease
CPT/HCPCS: 36415; 80048; 80061; 82570; 84156; 85014; 85018

== ENCOUNTER 2025-01-28 17:11 | Emergency (ER) | payer OTHER, SELFPAY ==
[2024-11-14 01:43] VITALS: BMI 22.9
[2025-01-28] VITALS (17 sets, daily range): BP systolic 128–154; BP diastolic 69–90; PULSE 65–82; RESP 22–24; TEMP 36.5; O2SAT 87–96
--- NOTE | 2025-01-28 17:31 | ED_ITS ---
HPI - Abdominal Pain
--- NOTE | 2025-01-28 17:31 | ED.ABDPAIN ---
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 treated with radiation therapy from March to June 14, 2024 whereby chemotherapy treatment was attempted but compromised immune system force to start treatment after 3 sessions for which PET scan in July 2024 confirms success of radiation treatment still using feeding tube for 100% on nutrition still has port installed in right upper chest, and equally important 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 November 13, 2024 overnight stay at the ICU resulting in left lung drainage 1st strain took out 1 L drainage twice using pleura PleurX drain kit subsequently has continuous drainage resulting 25-50 mL drain done every 3-4 days. Patient presents today to the ER with left lower quadrant pain radiating to the back but denies nausea, vomiting, diarrhea, chest pain, shortness of breath, constipation, diarrhea, or urinary complaints. Other than what is stated 14 point review of system is negative. Related Data Home Medications ?Medication ?Instructions ?Recorded ?Confirmed allopurinol 300 mg tablet 300 mg PO DAILY 01/28/20 01/28/25 rosuvastatin 10 mg tablet 10 mg PO DAILY 01/28/20 01/28/25 atenolol 25 mg tablet 25 mg PO DAILY 08/10/23 01/28/25 hydralazine 50 mg tablet 50 mg PO BID 08/10/23 01/28/25 valsartan 160 mg tablet 160 mg PO DAILY 08/10/23 01/28/25 aspirin 81 mg tablet 81 mg PO DAILY 01/28/25 01/28/25 benzonatate 100 mg capsule 100 mg PO BID PRN 01/28/25 01/28/25 cetuximab 100 mg/50 mL intravenous 200 mg IV Q2W 01/28/25 01/28/25 solution codeine 10 mg-guaifenesin 100 mg/5 5 ml PO ONCE 01/28/25 01/28/25 mL oral liquid lorazepam 0.5 mg tablet 0.5 mg PO DAILY PRN 01/28/25 01/28/25 melatonin 5 mg capsule mg PO BEDTIME 01/28/25 01/28/25 pembrolizumab 25 mg/mL intravenous 200 mg IV Q6W 01/28/25 01/28/25 solution (Keytruda) Previous Rx's ?Medication ?Instructions ?Recorded zolpidem 10 mg tablet 10 mg PO HSP PRN insomnia #30 tabs 12/02/17 gabapentin 300 mg capsule See Rx Instructions .Route 09/21/24 .COMPLEX #90 caps Allergies Allergy/AdvReac Type Severity Reaction Status Date / Time amlodipine AdvReac Intermediate Palpitation Verified 01/28/25 17:23 s felodipine AdvReac Intermediate Gingivitis Verified 01/28/25 17:23 lisinopril AdvReac Mild Headache Verified 01/28/25 17:23 Review of Systems Review of Systems ROS Unobtainable: All systems reviewed & are unremarkable except as noted in HPI and below Patient History Medical History Squamous cell cancer of epiglottis Esophageal cancer Gout Facet arthropathy, lumbar Herniated nucleus pulposus, L4-5 Hyperlipemia (Unknown) Psoriatic arthritis (2011) Foot pain (2004) DDD (degenerative disc disease), lumbosacral (2015) Ankle pain (2005) Chronic back pain (2005) Chickenpox (196) Measles (1961) Hearing loss (1994) Hemorrhoids (1999) Hypertension (1999) Resistant hypertension Hearing loss (~1994) Hypertension (~1999) Psoriatic arthritis (~2011) Sciatica (~2004) DDD (degenerative disc disease) Foot pain (~2004) Chronic back pain (~2004) Ankle pain (~2004) Measles (~1961) History of chicken pox (~1960) Hearing loss (~1994) Cystic fibrosis Hemorrhoids (~1999) Abdominal aortic aneurysm Pure hypercholesterolemia (05/27/17) Psoriatic arthritis (11/25/15) Primary insomnia (11/25/15) Osteoarthritis of spine with radiculopathy, lumbar region (11/25/15) Essential hypertension (11/25/15) Bilateral low back pain with sciatica (11/25/15) Surgical History History of selective injection of anesthetic agent around lumbar nerve root Family History Father No problems noted. Mother Cancer Social History marital status: household members: spouse pets and animals: Yes education level: college travel history: recent leisure activities: other other: boating, gardening, cooking, dogs seatbelt use: always water heater temp set < 120 deg: No alcohol intake: never substance use type: does not use during the past year weight has: remained stable well-balanced diet: daily or most days daily servings fruits/ve-4 caffeine: Yes eating out: 1-3 times/week Type(s) of exercise: additional (pilates ) frequency: 3-4 times per week duration: 45-60 minutes/day Exam Narrative Exam Narrative: GENERAL: [69] year old patient appears stated age. Well-developed patient, in mild distress. HEAD: Atraumatic. Normocephalic. EYES: Pupils equal round and reactive. Extraocular motions intact. No scleral icterus. No injection or drainage. ENT: Nose without bleeding, purulent drainage. Throat without erythema, tonsillar hypertrophy or exudate. Airway patent. NECK: Trachea midline. Non tender CARDIOVASCULAR: Regular rate and rhythm without murmurs, gallops, or rubs. RESPIRATORY: Clear to auscultation. Breath sounds equal bilaterally. No wheezes, rales, or rhonchi. GASTROINTESTINAL: Abdomen soft, LLQ TTP no r/r/g, nondistended. EXTREMITIES: No edema or joint tenderness. BACK: Nontender without deformity or crepitance. No flank tenderness. NEURO: AOx3. SKIN: No rash or erythema of visible areas Initial Vital Signs Initial Vital Signs: Vital Signs Pulse Rate 82 01/28/25 17:21 Pulse Oximetry 93 01/28/25 17:21 Course Orders Ordered: Discontinued Medications Hydromorphone HCl (Hydromorphone Hcl 0.5 Mg/0.5 Ml Syringe) 0.5 mg IV NOW ONE Stop: 01/28/25 17:41 Last Admin: 01/28/25 17:57 Dose: 0.5 mg Documented By: SBF Hydromorphone HCl (Hydromorphone 1 Mg/Ml Syringe) 0.5 mg IV NOW ONE Stop: 01/28/25 18:12 Last Admin: 01/28/25 18:19 Dose: 0.5 mg Documented By: BRENT Hydromorphone HCl (Hydromorphone 1 Mg/Ml Syringe) 1 mg IV NOW ONE Stop: 01/28/25 20:15 Last Admin: 01/28/25 20:16 Dose: 1 mg Documented By: BRANDON Hydromorphone HCl (Hydromorphone 1 Mg/Ml Syringe) 1 mg IV NOW ONE Stop: 01/29/25 00:18 Last Admin: 01/29/25 00:28 Dose: 1 mg Documented By: BRANDON Lactated Ringer's (Lactated Ringers) 1,000 mls @ 1,000 mls/hr IV BOLUS ONE Stop: 01/28/25 18:39 Last Infusion: 01/28/25 20:15 Dose: Infused Documented By: Admin: 01/28/25 17:57 Dose: 1,000 mls/hr Documented By: BRENT Ondansetron HCl (Ondansetron 4 Mg/2 Ml Inj) 4 mg IV NOW PRN PRN Reason: Nausea And Vomiting Ondansetron HCl (Ondansetron 4 Mg Odt) 4 mg PO NOW PRN PRN Reason: Nausea And Vomiting Last Admin: 01/28/25 20:56 Dose: 4 mg Documented By: KHAI Vital Signs Vital signs: Vital Signs - 8 hr 01/28/25 17:21 01/28/25 17:23 01/28/25 17:31 Temperature 97.7 F Pulse Rate 82 81 65 Respiratory Rate 22 Blood Pressure 150/76 H Pulse Oximetry 93 93 87 L Oxygen Delivery Method Room Air Oxygen Flow Rate 01/28/25 17:42 01/28/25 17:42 01/28/25 18:01 Temperature Pulse Rate 79 82 Respiratory Rate Blood Pressure 140/84 Pulse Oximetry 91 92 Oxygen Delivery Method Oxygen Flow Rate 01/28/25 18:18 01/28/25 18:18 01/28/25 18:30 Temperature Pulse Rate 78 Respiratory Rate Blood Pressure 154/85 H 135/76 Pulse Oximetry 95 Oxygen Delivery Method Oxygen Flow Rate 01/28/25 18:30 01/28/25 19:00 01/28/25 19:00 Temperature Pulse Rate 76 74 Respiratory Rate Blood Pressure 139/76 Pulse Oximetry 96 94 Oxygen Delivery Method Oxygen Flow Rate 01/28/25 19:30 01/28/25 19:30 01/28/25 20:00 Temperature Pulse Rate 75 Respiratory Rate 24 Blood Pressure 145/72 H 151/90 H Pulse Oximetry 89 L Oxygen Delivery Method Oxygen Flow Rate 01/28/25 20:00 01/28/25 20:30 01/28/25 20:30 Temperature Pulse Rate 74 71 Respiratory Rate Blood Pressure 133/86 Pulse Oximetry 91 94 Oxygen Delivery Method Nasal Cannula Oxygen Flow Rate 7 01/28/25 21:00 01/28/25 21:00 01/28/25 21:30 Temperature Pulse Rate 73 70 Respiratory Rate Blood Pressure 151/73 H Pulse Oximetry 91 92 Oxygen Delivery Method Oxygen Flow Rate 01/28/25 21:30 01/28/25 22:00 01/28/25 22:00 Temperature Pulse Rate 71 Respiratory Rate Blood Pressure 133/78 141/83 H Pulse Oximetry 93 Oxygen Delivery Method Nasal Cannula Oxygen Flow Rate 3 MDM - Abdominal Pain Lab Data 01/28/25 17:30 01/28/25 17:30 Labs: Lab Results 01/28/25 Range/Units 17:30 WBC 1.6 L* (4.5-11.0) X10^3/uL RBC 3.70 L (4.5-5.9) X10^6/uL Hgb 10.2 L (13.5-17.5) g/dL Hct 31.1 L (41-53) % MCV 84.1 (80-100) fL MCH 27.4 (26-34) PG MCHC 32.6 (30-36) % RDW 15.6 H (11.6-14.8) % Plt Count 216 (150-400) X10^3/uL Neut % (Auto) Not Reportable Lymph % (Auto) Not Reportable [place] % (Auto) Not Reportable Eos % (Auto) Not Reportable Baso % (Auto) Not Reportable Lymph # (Auto) Not Reportable [place] # (Auto) Not Reportable Baso # (Auto) Not Reportable Total Counted 100 Seg Neutrophils % 79.0 H (38-70) % Lymphocytes % (Manual) 16.0 L (25-45) % Monocytes % (Manual) 4.0 (2-11) % Basophils % (Manual) 1.0 (0-1) % Neutrophils # (Manual) 1264 L (8283-9133) /uL RBC Morphology Normal morphology Sodium 131 L (137-145) mmol/L Potassium 4.2 (3.4-5.1) mmol/L Chloride 96 L (98-107) mmol/L Carbon Dioxide 27 (22-32) mmol/L BUN 28 H (9-20) mg/dL Creatinine 0.73 (0.66-1.25) mg/dL Estimated GFR > 60 (>60) mL/min BUN/Creatinine Ratio 38.4 H (6-22) Glucose 161 H (70-99) mg/dL Calcium 9.0 (8.4-10.2) mg/dL Total Bilirubin 0.6 (0.2-1.3) mg/dL AST 63 H (17-59) IU/L ALT 20 (<50) IU/L Alkaline Phosphatase 81 (38-126) U/L Troponin I < 0.012 (0.01-0.034) ng/mL NT-Pro-B Natriuret Pep 1190 H (<125) pg/mL Total Protein 6.9 (6.3-8.2) g/dL Albumin 3.8 (3.5-5.0) g/dL Globulin 3.1 (1.7-4.1) g/dL Albumin/Globulin Ratio 1.2 (1.0-2.8) Lipase 27 (23-300) U/L Point of care testing: Urine Dip Bedside Urine Glucose Negative Bedside Urine Bilirubin - Negative Bedside Urine Ketone +/- 5 Urine Specific [place] 1.010 Bedside Urine Occult Blood - Negative Bedside Urine pH 6 Bedside Urine Protein - Negative Bedside Urine Urobilinogen - Negative Bedside Urine Nitrite - Negative Bedside Urine Leukocytes - Negative Esterase Imaging Data CT scan - chest: Radiologist's Impression: [address] [address] [address] Scan Report Signed Patient: Steven Meadows MR#: [id number] : 1955 Acct:[id number] Age/Sex: 69 / M Date of Service: 01/28/25 Loc: ED Accession Number: [id number] Procedure: CT angio chest PE protocol Ordering Provider: Scott Best D.O. PROCEDURE: CT ANGIO CHEST PE PROTOCOL INDICATIONS: Hairy cell leukemia/ head neck ca, port in Right upper chest TECHNIQUE: After the administration of intravenous contrast, 2 mm thick sections acquired from the pulmonary apices to the posterior costophrenic angles. 3-dimensional maximum intensity projection (MIP) coronal and sagittal reformats were then acquired through the thorax. For radiation dose reduction, the following was used: automated exposure control, adjustment of mA and/or kV according to patient size. COMPARISON: [facility], CT, CT ANGIO CHEST PE PROTOCOL, 11/13/2024, 17:38. FINDINGS: Image quality: Diagnostic. Pulmonary arteries: Pulmonary arteries are normal in size, and demonstrate no intraluminal filling defects to suggest central pulmonary embolism. Lower Neck: No enlarged lymph nodes. Thyroid: No thyroid nodules which require sonographic follow up, per consensus guidelines. Axillae: No enlarged lymph nodes. Chest Wall: Right chest wall port. Bones: Unremarkable. Lungs and Pleura: Disease progression, with significant growth of the perihilar soft tissues . Increased pleural deposition of the left lung. Small, loculated left-sided pleural effusion which is decreased from prior. New irregular interstitial thickening with associated nodularity. Small right pleural effusion. Heart: Heart size is normal. No pericardial effusion. Thoracic Vessels: No aortic aneurysm. Mediastinum and Eli: Mediastinal adenopathy, slightly increased from prior. For instance the 2.5 cm right lower paratracheal node previously measured 2.3 cm (series 5, image 55). Esophagus: No wall thickening. No hiatal hernia. Upper Abdomen: Separately dictated. IMPRESSION: No pulmonary embolus. Significant disease progression, with increased perihilar soft tissue, increase left-sided pleural deposition, and new lymphangitic spread of malignancy. CT scan - abdomen/pelvis: Radiologist's Impression: [address] [address] [address] Scan Report Signed Patient: Steven Meadows MR#: [id number] : 1955 Acct:[id number] Age/Sex: 69 / M Date of Service: 01/28/25 Loc: ED Accession Number: [id number] Procedure: CT abdomen pelvis w con Ordering Provider: Scott Best D.O. PROCEDURE: CT ABDOMEN PELVIS W CON INDICATIONS: LLQ pain/ L flank pain TECHNIQUE: After the administration of intravenous contrast, axial sections acquired from the lung bases to the pubic symphysis. Coronal and sagittal reformats were performed. For radiation dose reduction, the following was used: automated exposure control, adjustment of mA and/or kV according to patient size. COMPARISON: [facility], CT, CT ABDOMEN PELVIS W CON, 11/13/2024, 17:38. FINDINGS: Image quality: Diagnostic. Lower Chest: Separately dictated. ABDOMEN: Liver: New 2.3 cm segment 7 hypoattenuating mass. Gallbladder: No radiopaque gallstones or wall thickening. Biliary ducts: No biliary dilation. Pancreas: No ductal dilation. Spleen: Enlarged, measuring up to 15.5 cm. Adrenal Glands: No adrenal nodules. Kidneys and Ureters: Severe left-sided hydronephrosis, new from prior. Delayed nephrogram. There is a hyperattenuating mass within the mid left ureter measuring 1.8 cm (series 2, image 123). Right perirenal soft tissue nodule measuring 0.5 cm. Stomach and Bowel: Rectal wall thickening. Peritoneum: No abnormal intraperitoneal fluid. No free air. Ventral Wall: No significant ventral hernia. Abdominal Nodes: New abnormal lymph node in the gastrohepatic space measuring 2.1 cm (series 2, image 48). New upper periaortic node measuring 1.2 cm (series 2, image 57). Vessels: Aorta and inferior vena cava are normal in size. PELVIS: Pelvic Organs: Unremarkable. Bladder: No bladder wall thickening, accounting for underdistention. Pelvic Nodes: No enlarged lymph nodes. Miscellaneous: No inguinal hernias are seen. Bones: No aggressive osseous abnormality. IMPRESSION: Obstructing mass in the mid left ureter measuring 1.8 cm. Imaging properties are concerning for transitional cell carcinoma. Urology consultation should be considered given the presence of severe left-sided hydronephrosis and delayed nephrogram. Rectal wall thickening, indicating proctitis. This could be immunotherapy associated. Correlate with immunotherapy use. Stable splenomegaly. Growing retroperitoneal lymphadenopathy. Growing right perirenal soft tissue nodule measuring 0.5 cm, likely metastatic disease. ECG Data Interpretation: NSR HR 75 TX 146 QRS [address]-t wave change Unchanged from 11/13/24 MDM Narrative Medical decision making narrative: All labwork, vital signs, refrigerator mover note, med list, previous ER visits, and all imaging studies reviewed. WBC 1.6 hemoglobin 10.2 platelet 216 sodium 131 has not 4.2 chloride 96 CO2 27 BUN 28 creatinine 0.73 glucose 161 this AST 63 1st set troponin less than 0.012 BNP 11 90 lipase 27. Urologist has agreed pt needs IR for nephrostomy tube placement and case d/w hospitalist who has accepted pt. CT a showed no pulmonary embolus. Significant disease progression with increased perihilar soft tissue increased left-sided pleural deposition and new lymphangitic spread of malignancy. CT abdomen and pelvis showed obstructing mass in the mid left ureter measuring 1.8 cm. Imaging properties or concerning for transitional cell carcinoma. Urology consultation should be considered given the presence of severe left-sided hydronephrosis and delayed nephrogram. Rectal wall thickening indicating proctitis. This could be immunotherapy associated. Stable splenomegaly. Groin retroperitoneal lymphadenopathy. Groin right perirenal soft tissue nodule measuring 0.5 cm likely metastatic disease. Case discussed with Dr. Rc Thomas local urologist who is out of town on medical conference who recommended the patient have nephrostomy tube placement with interventional radiology if pain is not able to be controlled. Case discussed with Dr. Sparrow urology at [facility] who agreed patient need IR intervention in light of pain control. Case discussed with Dr. Welch hospitalist who has graciously accepted the patient for inpatient admission awaiting bed availability for transfer. Discharge Plan Departure Patient Disposition: [facility] Clinical Impression: Mass of ureter Prescriptions: No Action zolpidem 10 mg tablet 10 mg PO HSP PRN (Reason: insomnia) Qty: 30 4RF gabapentin 300 mg capsule See Rx Instructions .ROUTE .COMPLEX Qty: 90 2RF Dose Instruction: Take 1-2 capsules (300-600 mg) by mouth 3 times daily - begin taking at bedtime and increase to pain relief. Rx Instructions: Take 1-2 capsules (300-600 mg) by mouth 3 times daily - begin taking at bedtime and increase to pain relief. valsartan 160 mg tablet 160 mg PO DAILY atenolol 25 mg tablet 25 mg PO DAILY hydralazine 50 mg tablet 50 mg PO BID allopurinol 300 mg tablet 300 mg PO DAILY rosuvastatin 10 mg tablet 10 mg PO DAILY lorazepam 0.5 mg tablet 0.5 mg PO DAILY PRN benzonatate 100 mg capsule 100 mg PO BID PRN codeine-guaifenesin 10-100 mg/5 mL liquid 5 ml PO ONCE aspirin 81 mg tablet 81 mg PO DAILY cetuximab 100 mg/50 mL solution 200 mg IV Q2W Rx Instructions: administer over 60 mins melatonin 5 mg capsule PO BEDTIME Keytruda 25 mg/mL solution 200 mg IV Q6W Rx Instructions: administer over 30 mins Referrals: Grant Yen MD [Primary Care Provider, Family Practice]
--- NOTE | 2025-01-28 17:38 | DI.CT.S_ITS ---
PROCEDURE: CT ANGIO CHEST PE PROTOCOL
--- NOTE | 2025-01-28 17:38 | DI.CT.S_ITS ---
PROCEDURE: CT ABDOMEN PELVIS W CON
[2025-01-28 17:48] LABS: Hematocrit 31.1 % (41-53); Hemoglobin 10.2 g/dL (13.5-17.5); Mean Corpuscular HGB Conc 32.6 % (30-36); Mean Corpuscular Hemoglobin 27.4 PG (26-34); Mean Corpuscular Volume 84.1 fL (80-100); Platelet Count 216 X10^3/uL (150-400)
[2025-01-28 17:51] LABS: Alanine Aminotransferase 20 IU/L (<50); Albumin 3.8 g/dL (3.5-5.0); Albumin Globulin Ratio 1.2 (1.0-2.8); Alkaline Phosphatase 81 U/L (38-126); Blood Urea Nitrogen 28 mg/dL (9-20); Calcium 9.0 mg/dL (8.4-10.2); Carbon Dioxide 27 mmol/L (22-32); Chloride 96 mmol/L (98-107); Estimated Glomerular Filt Rate > 60 mL/min (>60); Globulin 3.1 g/dL (1.7-4.1); Glucose 161 mg/dL (70-99); HEMOLYSIS < 15 (0-50); Lipase 27 U/L (23-300); Potassium 4.2 mmol/L (3.4-5.1); Sodium 131 mmol/L (137-145); Total Protein 6.9 g/dL (6.3-8.2)
[2025-01-28] MEDS: LACTATED RINGERS 1,000 ML 1000 ML IV (17:57)
[2025-01-28 18:04] LABS: NT-proBNP (BNP-Adult 18+) 1190 pg/mL (<125); Troponin I < 0.012 ng/mL (0.01-0.034)
[2025-01-28 18:09] LABS: Add Manual Diff / Slide Review YES
--- NOTE | 2025-01-28 18:27 | PC.NURSE ---
patient reporting on and off abdominal pain not related to needing to use br
[2025-01-28 18:35] LABS: Basophils Percent Manual 1.0 % (0-1); Lymphocytes Percent Manual 16.0 % (25-45); Monocytes Percent Manual 4.0 % (2-11); Neutrophils Absolute Manual 1264 /uL (3000-5900); Segmented Neutrophils Percent 79.0 % (38-70); Total Cells Counted 100
[2025-01-28 18:36] LABS: RBC Morphology Normal Morphology
--- NOTE | 2025-01-28 20:20 | PC.NURSE ---
pt medicated for c/o increasing pain, pt lying on stretcher with HOB elevated at bedside, O2 per NC in place
[2025-01-28] MEDS: ONDANSETRON 4 MG ODT PO (20:56)
--- NOTE | 2025-01-28 23:40 | PC.NURSE ---
called and spoke with informed her of the room number
[2025-01-29] VITALS: BP 158/87; PULSE 73; RESP 18; O2SAT 94
== END 2025-01-29 00:42 | disposition short-term general hospital (02) ==
PROVIDERS: Emergency Provider Family Medicine; PCP Family Medicine
DX: N28.9 Disorder of kidney and ureter, unspecified (principal); C91.40 Hairy cell leukemia not having achieved remission; R79.89 Other specified abnormal findings of blood chemistry; C76.0 Malignant neoplasm of head, face and neck; C78.00 Secondary malignant neoplasm of unspecified lung; Z92.21 Personal history of antineoplastic chemotherapy
CPT/HCPCS: 36415; 71275; 74177; 80053; 81003; 83690; 83880; 84484; 85007; 85025; 93005; 96361; 96374; 96376; 99284; 99285; J1171; J7120; Q9967

== ENCOUNTER 2025-02-03 20:29 | Emergency (ER) | payer OTHER, SELFPAY ==
[2024-11-14 01:43] VITALS: BMI 22.9
[2025-02-03] VITALS (7 sets, daily range): BP systolic 118–157; BP diastolic 68–82; PULSE 79–89; RESP 20–28; TEMP 36.9; O2SAT 91–94; BMI 20.7
[2025-02-03] MEDS: ONDANSETRON 4 MG/2 ML INJ IV (21:18)
--- NOTE | 2025-02-03 21:40 | ED_ITS ---
HPI - SOB/Dyspnea
--- NOTE | 2025-02-03 21:40 | ED.SOB ---
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 treated with radiation therapy from March to June 14, 2024 whereby chemotherapy treatment was attempted but compromised immune system force to start treatment after 3 sessions for which PET scan in July 2024 confirms success of radiation treatment still using feeding tube for 100% on nutrition still has port installed in right upper chest, and equally important 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 November 13, 2024 overnight stay at the ICU resulting in left lung drainage 1st strain took out 1 L drainage twice using pleura PleurX drain kit subsequently has continuous drainage resulting 25-50 mL drain done every 3-4 days. 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 He presents to the ER with more shortness of breath today. He denies any nausea vomiting diarrhea chest pain or other urinary symptoms. Other than what is stated 14 point review of system is negative. Related Data Home Medications ?Medication ?Instructions ?Recorded ?Confirmed allopurinol 300 mg tablet 300 mg PO DAILY 01/28/20 01/28/25 rosuvastatin 10 mg tablet 10 mg PO DAILY 01/28/20 01/28/25 atenolol 25 mg tablet 25 mg PO DAILY 08/10/23 01/28/25 hydralazine 50 mg tablet 50 mg PO BID 08/10/23 01/28/25 valsartan 160 mg tablet 160 mg PO DAILY 08/10/23 01/28/25 aspirin 81 mg tablet 81 mg PO DAILY 01/28/25 01/28/25 benzonatate 100 mg capsule 100 mg PO BID PRN 01/28/25 01/28/25 cetuximab 100 mg/50 mL intravenous 200 mg IV Q2W 01/28/25 01/28/25 solution codeine 10 mg-guaifenesin 100 mg/5 5 ml PO ONCE 01/28/25 01/28/25 mL oral liquid lorazepam 0.5 mg tablet 0.5 mg PO DAILY PRN 01/28/25 01/28/25 melatonin 5 mg capsule mg PO BEDTIME 01/28/25 01/28/25 pembrolizumab 25 mg/mL intravenous 200 mg IV Q6W 01/28/25 01/28/25 solution (Keytruda) Previous Rx's ?Medication ?Instructions ?Recorded zolpidem 10 mg tablet 10 mg PO HSP PRN insomnia #30 tabs 12/02/17 gabapentin 300 mg capsule See Rx Instructions .Route 09/21/24 .COMPLEX #90 caps hydromorphone 2 mg tablet 2 mg PO Q4-6H PRN pain #14 tabs 02/03/25 (Dilaudid) Allergies Allergy/AdvReac Type Severity Reaction Status Date / Time amlodipine AdvReac Intermediate Palpitation Verified 01/28/25 17:23 s felodipine AdvReac Intermediate Gingivitis Verified 01/28/25 17:23 lisinopril AdvReac Mild Headache Verified 01/28/25 17:23 Review of Systems Review of Systems ROS Unobtainable: All systems reviewed & are unremarkable except as noted in HPI and below Patient History Medical History Squamous cell cancer of epiglottis Esophageal cancer Gout Facet arthropathy, lumbar Herniated nucleus pulposus, L4-5 Hyperlipemia (Unknown) Psoriatic arthritis (2011) Foot pain (2004) DDD (degenerative disc disease), lumbosacral (2016) Ankle pain (2004) Chronic back pain (2004) Chickenpox (1960) Measles (1961) Hearing loss (1994) Hemorrhoids (1999) Hypertension (1999) Resistant hypertension Hearing loss (~1994) Hypertension (~1999) Psoriatic arthritis (~2011) Sciatica (~2004) DDD (degenerative disc disease) Foot pain (~2004) Chronic back pain (~2004) Ankle pain (~2004) Measles (~1961) History of chicken pox (~1960) Hearing loss (~1994) Cystic fibrosis Hemorrhoids (~1999) Abdominal aortic aneurysm Pure hypercholesterolemia (05/27/17) Psoriatic arthritis (11/25/15) Primary insomnia (11/25/15) Osteoarthritis of spine with radiculopathy, lumbar region (11/25/15) Essential hypertension (11/25/15) Bilateral low back pain with sciatica (11/25/15) Surgical History History of selective injection of anesthetic agent around lumbar nerve root Family History Father No problems noted. Mother Cancer Social History marital status: household members: spouse pets and animals: Yes education level: college travel history: recent leisure activities: other other: boating, gardening, cooking, dogs seatbelt use: always water heater temp set < 120 deg: No Smoking Status: Never smoker alcohol intake: never substance use type: does not use during the past year weight has: remained stable well-balanced diet: daily or most days daily servings fruits/ve-4 caffeine: Yes eating out: 1-3 times/week Type(s) of exercise: additional (pilates ) frequency: 3-4 times per week duration: 45-60 minutes/day Smoking Status: Never smoker Exam Narrative Exam Narrative: General: Patient appears to be in no acute distress, acting appropriately , on 2l of o2 nc Head: normocephalic, atraumatic, HEENT: Pupils equal round reactive, eyes tracking well, neck supple, no JVD Heart: regular rate and rhythm, no murmurs, rubs, or gallops heard Lungs: clear to auscultation, no adventitious sounds Abdomen: soft , nontender, nondistended, positive bowel sounds Neurological: no focal neurological signs, moving all extremities well, alert and oriented x3, Psych: good judgment ,good insight, mood is normal. Initial Vital Signs Initial Vital Signs: Vital Signs Temperature 98.5 F 02/03/25 20:36 Pulse Rate 89 02/03/25 20:36 Respiratory Rate 28 H 02/03/25 20:36 Blood Pressure 157/82 H 02/03/25 20:36 Pulse Oximetry 92 02/03/25 20:36 Oxygen Delivery Method Room Air 02/03/25 20:36 Course Orders Ordered: ED Orders 02/03/25 22:19 Home O2 [Evaluate for home oxygen] NOW Discontinued Medications Hydromorphone HCl (Hydromorphone 1 Mg/Ml Syringe) 1 mg IV NOW ONE Stop: 02/03/25 21:04 Last Admin: 02/03/25 21:18 Dose: 1 mg Documented By: JOSE Hydromorphone HCl (Hydromorphone 1 Mg/Ml Syringe) 1 mg IV NOW ONE Stop: 02/03/25 23:20 Last Admin: 02/03/25 23:30 Dose: 1 mg Documented By: JOSE Ondansetron HCl (Ondansetron 4 Mg/2 Ml Inj) 4 mg IV NOW ONE Stop: 02/03/25 21:04 Last Admin: 02/03/25 21:18 Dose: 4 mg Documented By: JOSE Oxycodone/Acetaminophen (Oxycodone/Apap 5/325 Prepack) 1 bottle MISC DIRECTED ONE Stop: 02/03/25 23:17 Last Admin: 02/03/25 23:30 Dose: 1 bottle Documented By: JOSE Vital Signs Vital signs: Vital Signs - 8 hr 02/03/25 22:00 02/03/25 22:00 02/03/25 22:30 Pulse Rate 83 Respiratory Rate 20 Blood Pressure 126/68 118/70 Pulse Oximetry 94 Oxygen Delivery Method Oxygen Flow Rate 02/03/25 22:30 02/03/25 23:00 02/03/25 23:00 Pulse Rate 79 84 Respiratory Rate 22 21 Blood Pressure 154/71 H Pulse Oximetry 94 93 Oxygen Delivery Method Nasal Cannula Oxygen Flow Rate 2 MDM - SOB/Dyspnea MDM Narrative Medical decision making narrative: 69-year-old male with a history of hairy cell leukemia, 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 He had a PleurX drain placed here during his ICU overnight stay. He seems to be doing much better with a little bit of oxygen nasal cannula. Went ahead and got him some home oxygen and he was able to use and the patient is eager to be discharged with found any further workup. Advised to follow up for any worsening symptoms. Discharge Plan Departure Patient Disposition: Home Clinical Impression: Cancer of head and neck Dyspnea Qualifiers: Dyspnea type: unspecified Qualified Code(s): R06.00 - Dyspnea, unspecified Instructions: DI for Oxygen Therapy -- Adult Activity Restrictions/Additional Instructions: Use the 2 L of oxygen at home as needed. may follow up any time for increased shortness of breath Prescriptions: New hydromorphone [Dilaudid] 2 mg tablet 2 mg PO Q4-6H PRN (Reason: pain) Qty: 14 0RF No Action zolpidem 10 mg tablet 10 mg PO HSP PRN (Reason: insomnia) Qty: 30 4RF gabapentin 300 mg capsule See Rx Instructions .ROUTE .COMPLEX Qty: 90 2RF Dose Instruction: Take 1-2 capsules (300-600 mg) by mouth 3 times daily - begin taking at bedtime and increase to pain relief. Rx Instructions: Take 1-2 capsules (300-600 mg) by mouth 3 times daily - begin taking at bedtime and increase to pain relief. valsartan 160 mg tablet 160 mg PO DAILY atenolol 25 mg tablet 25 mg PO DAILY hydralazine 50 mg tablet 50 mg PO BID allopurinol 300 mg tablet 300 mg PO DAILY rosuvastatin 10 mg tablet 10 mg PO DAILY lorazepam 0.5 mg tablet 0.5 mg PO DAILY PRN benzonatate 100 mg capsule 100 mg PO BID PRN codeine-guaifenesin 10-100 mg/5 mL liquid 5 ml PO ONCE aspirin 81 mg tablet 81 mg PO DAILY cetuximab 100 mg/50 mL solution 200 mg IV Q2W Rx Instructions: administer over 60 mins melatonin 5 mg capsule PO BEDTIME Keytruda 25 mg/mL solution 200 mg IV Q6W Rx Instructions: administer over 30 mins Referrals: Grant Yen MD [Primary Care Provider, Family Practice] Stand Alone Forms: Patient Portal/API
== END 2025-02-03 23:39 | disposition home or self-care (01) ==
PROVIDERS: Emergency Provider Family Medicine; PCP Family Medicine
DX: R06.00 Dyspnea, unspecified (principal); C76.0 Malignant neoplasm of head, face and neck
CPT/HCPCS: 96374; 96375; 96376; 99284; J1171; J2405